=== PATIENT | male | born 1970 | race Native Hawaiian/Other Pacific Islander ===

== ENCOUNTER 2019-05-02 07:58 | Emergency (ER) | payer OTHER ==
[~2019-05-02] VITALS: Ht 175.3 cm; Wt 106.6 kg
[2019-05-02 08:04] VITALS: TEMP 98.7
[2019-05-02 08:58] LABS: PLATELET COUNT 161 K/uL (142-355)
[2019-05-02 09:01] LABS: POTASSIUM 4.7 mmol/L (3.6-5.2)
[2019-05-02 11:17] LABS: POTASSIUM 4.2 mmol/L (3.6-5.2)
[2019-05-02 11:50] VITALS: BP 157/95
== END 2019-05-02 11:50 | disposition home or self-care (01) ==
LOC: ED 07:58
PROVIDERS: Family Medicine
DX: E11.65 Type 2 diabetes mellitus with hyperglycemia (principal); I10 Essential (primary) hypertension; E87.1 Hypo-osmolality and hyponatremia; E86.0 Dehydration; F17.210 Nicotine dependence, cigarettes, uncomplicated
CPT/HCPCS: 36415; 80048; 80053; 81000; 85027; 87502; 96360; 96375; 99284; J1815

== ENCOUNTER 2019-06-17 12:00 | Emergency (ER) | payer OTHER ==
[~2019-06-17] VITALS: Ht 175.3 cm; Wt 106.6 kg
[2019-06-17 12:13] VITALS: TEMP 98
[2019-06-17 12:43] LABS: PLATELET COUNT 207 K/uL (142-355)
[2019-06-17 12:52] LABS: POTASSIUM 3.8 mmol/L (3.6-5.2)
[2019-06-17 15:05] VITALS: BP 140/80
== END 2019-06-17 15:08 | disposition short-term general hospital (02) ==
LOC: ED 12:00
PROVIDERS: Emergency Medicine
DX: G45.9 Transient cerebral ischemic attack, unspecified (principal)
CPT/HCPCS: 80053; 80307; 81000; 83735; 85027; 93005; 96361; 96365; 99284; J3475

== ENCOUNTER 2019-06-17 15:28 | Outpatient (CLI) | payer OTHER | END 2019-06-17 16:39 | disposition short-term general hospital (02) | LOC: AMB 15:28 | DX: R53.1 Weakness (principal); G45.8 Other transient cerebral ischemic attacks and related syndromes | CPT/HCPCS: A0425; A0427 ==